=== PATIENT | male | born 1955 | race Caucasian/White ===

== ENCOUNTER 2017-01-20 12:13 | Inpatient (IN) | payer MEDICAID ==
[~2017-01-20] VITALS: Ht 182.9 cm; Wt 126.1 kg
[2017-01-20 12:46] VITALS: BP 183/82
--- NOTE | 2017-01-20 12:53 | NUR ---
Patient ambulated to bed 7 at this time.
--- NOTE | 2017-01-20 13:02 | NUR ---
PT PRESENTS TO ER W/C/O LEFT LOWER LEG PAIN AND EDEMA X3 WEEKS. LEFT PANT LEG NOTED TO BE SATURATED W/FOUL SMELLING LIQUID EMANATING FROM LEFT LOWER LEG.RT LEG IS SWOOLEN AND REDNESS NOTED BUT DENIES PAIN ON THAT SITE; PT STATES IT HAPPENED A YEAR AGO AND JUST DISAPPEARED W/O TAKING ANY MEDICATION;NUMBENESS ON LEFT LEG.PT DENIES ANY MEDICAL HX.STEADY GAIT;DENIES CPF/N/V/ COUGH AT THIS TIME;STATES MILD SOB;02 SAT OF 97%;AAOX4;NO ACUTE DISTRESS NOTED AT THIS TIME;NEEDS ATTENDED;SAFETY MEASURES DONE;ALL MONITORS IN PLACED;POSITIONED FOR COMFORT.
[2017-01-20] MEDS ORDERED: NACL 0.9% 500 ML IV SCH (13:11)
[2017-01-20] MEDS ORDERED: cefTRIAXone 1,000 MG in DEXT 5% MINI-BAG PLUS 50 ML IV ONE (13:15)
[2017-01-20] MEDS ORDERED: VANCOMYCIN 1,000 MG in DEXTROSE 5% 250 ML IV ONE (13:15)
--- NOTE | 2017-01-20 13:15 | NUR ---
DR LUCERO AT BEDSIDE.
[2017-01-20] MEDS ORDERED: cefTRIAXone 1,000 MG VIAL ONE (13:54)
--- NOTE | 2017-01-20 14:09 | NUR ---
ASKED PT IF HE CAN URINATE AT THIS TIME;PT STATES " I'M NOT ABLE YET";WILL CONTINUE TO MONITOR PT.
[2017-01-20] MEDS ORDERED: HYDROmorphone 1 MG/ML AMP IVP ONE (14:40)
[2017-01-20] MEDS ORDERED: ONDANSETRON 4 MG/2 ML VIAL IVP ONE (14:40)
[2017-01-20] MEDS ORDERED: VANCOMYCIN 1,000 MG VIAL ONE (14:46)
[2017-01-20] MEDS: NACL 0.9% 1,000 ML IV SCH (15:19)
[2017-01-20] MEDS ORDERED: ZOLPIDEM 5 MG TAB PO PRN (15:20)
[2017-01-20] MEDS ORDERED: HYDROcodone/APAP 5/325 MG 1 TAB TAB PO PRN (15:20)
[2017-01-20] MEDS ORDERED: ACETAMINOPHEN 325 MG TAB PO PRN (15:20)
[2017-01-20] MEDS ORDERED: ONDANSETRON 4 MG/2 ML VIAL IVP PRN (15:20)
[2017-01-20] MEDS ORDERED: LORazepam 1 MG TAB PO PRN ×2 (15:20→16:50)
--- NOTE | 2017-01-20 15:20 | NUR ---
PATIENT ADMITTED TO [facility] ROOM 115 FROM ER. PT ADMITTED FOR LEFT LEG CELLULITIS. PATIENT IS ALERT AND ORIENTED X4. AMBULATORY WITH ASSIST, WEAKNESS DUE TO PAIN. PATIENT MEDICATED IN ER FOR PAIN, DENIES DISCOMFORT AT THIS TIME. LUNG SOUNDS CLEAR BILATERALLY, NO S/S OF RESPIRATORY DISTRESS. CALL LIGHT WITHIN REACH. ORIENTED PT TO HOSPITAL ENVIRONMENT. BED IN LOWEST POSITION. MD NOTIFIED FOR WOUND CONSULTATION. WILL CONTINUE TO MONITOR.
--- NOTE | 2017-01-20 15:25 | NUR ---
Admited to ROOM MS. Will go to room 115 A. Belongings list completed. Report to LINDA HANNAH.
[2017-01-20] MEDS: INTERDRY CLOTH TP SCH (15:50)
[2017-01-20 16:00] VITALS: BP 148/75
--- NOTE | 2017-01-20 16:00 | NUR ---
PATIENT SEEN BY WOUND CARE NURSE FOR LEFT LEG CELLULITIS. WC NURSE SPOKE WITH PRIMARY MD REGARDING PLAN OF CARE, NEW ORDERS RECEIVED.
[2017-01-20] MEDS ORDERED: PNEUMOCOCCAL VACCINE 23 MCG/0.5 ML VIAL IMVAC SCH (16:05)
--- NOTE | 2017-01-20 16:10 | NUR ---
WOUND CARE EVALUATION NOTES: REASON FOR EVALUATION: LLE CELLULITIS. COMPLETE SKIN ASSESSMENT DONE ON THIS 61 Y/O MALE PATIENT FROM HOME TO [facility], WITH INITIAL DIAGNOSIS OF LLE CELLULITIS. NO PERTINENT MEDICAL HISTORY CLAIMED. HAS NOT SEEN A DOCTOR FOR 3O-40 YEARS CLAIMED. 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 LABS ARE WBC 9.8, H/H 14.4/43.5, GLUCOSE 125, ALBUMIN 3.2, PT/INR 10.1/1.1 AND PTT 28.5. CURRENT MEDS INCLUDE NICOTINE TRANSDERMAL, CLINDAMYCIN, ATIVAN AND NORCO. PATIENT IS AWAKE, ALERT, ORIENTED TO PERSON, PLACE, DATE AND TIME. ABLE TO FOLLOW SIMPLE COMMAND. SKIN WARM TO TOUCH WNL, TOENAILS ARE LONG, THICKENED AND WITH YELLOWISH DISCOLORATIONS, LLE WITH EDEMA, RLE DRY AND FLAKY AND +3 BILATERAL PEDAL PULSES. URINE AND BOWEL CONTINENT, ABLE TO AMBULATE TO THE RESTROOM CLAIMED. ABLE TO TURN SELF WITH MINIMAL ASSISTANCE. INITIAL PLAN OF CARE AND PRESSURE PREVENTIVE MEASURES DISCUSSED, ABLE TO VERBALIZE UNDERSTANDING. INTEGUMENTARY: LLE - VENOUS STASIS ULCER - 100% THIN YELLOW PW WITH DISCOLORATION RLE - VENOUS STASIS ULCER - 100% BROWN ESCHAR ABDOMINAL FOLDS - INTERTRIGINOUS DERMATITIS RECOMMENDATIONS: -CLEANSE BLE WITH WOUND CLEANSER, PAT DRY, APPLY ADAPTIC, COVER WITH ABD PAD AND WRAP WITH RUSSELL Q DAY AND PRN WITH SOILING/DISPLACEMENT -CLEANSE ABDOMINAL FOLDS WITH MILD SOAP AND WATER, PAT DRY, APPLY INTERDRY CLOTH Q7 DAYS AND PRN WITH SOILING/DISPLACEMENT. CHECK DRESSING PLACEMENT DAILY --TURN AND REPOSITION PATIENT Q2H TO LEFT AND RIGHT SIDE ONLY TO OFFLOAD SACRALCOCCYX -ASSESS AND MONITOR SKIN CONDITION DURING POSITION CHANGE, PLEASE PAY PARTICULAR ATTENTION TO SACRALCOCCYX, ELBOWS AND HEELS -OFFLOAD BILATERAL HEELS BY PLACING PILLOWS UNDER CALVES AT ALL TIMES, UNLESS OTHERWISE CONTRAINDICATED -KEEP SKIN CLEAN AND DRY AT ALL TIMES. -ARTERIAL AND VEOUS DOPPLER U/S OF BLE IF OK WITH PMD -PODIATRY CONSULT IF OK WITH PMD. RECOMMENDATIONS DISCUSSED WITH PRIMARY RN AND RESIDENT PHYSICIAN, DR. PERDOMO WILL FOLLOW UP PATIENT Q 7 DAYS AND PRN. PLEASE CONTACT [facility] FOR ANY CONCERNS, QUESTIONS AND CHANGES IN SKIN CONDITION.
[2017-01-20] MEDS ORDERED: LORazepam 2 MG/ML VIAL IVP PRN (16:50)
[2017-01-20] MEDS: HYDROmorphone 1 MG/ML AMP IVP PRN ×2 (16:54→20:16)
[2017-01-20] MEDS: LEVOFLOXACIN 500 MG/D5W PREMIX 100 ML IV SCH (16:59)
[2017-01-20] MEDS ORDERED: SKINTEGRITY HYDROGEL TP PRN (18:00)
--- NOTE | 2017-01-20 18:00 | NUR ---
PATIENT SEEN BY DR ALBERTS PODIATRY AT BEDSIDE. NEW ORDERS RECEIVE FOR WOUND CARE. PATIENT IN AGREEMENT WITH TREATMENT PLAN.
[2017-01-20] MEDS ORDERED: SKINTEGRITY HYDROGEL TP SCH (18:04)
[2017-01-20] MEDS: CLINDAMYCIN 300 MG in DEXTROSE 5% 50 ML IV SCH ×2 (18:28→23:49)
--- NOTE | 2017-01-20 19:19 | NUR ---
SBAR REPORT GIVEN TO RN ARJUN AT PATIENT BEDSIDE. LEG DRESSING PLACED BY DR. ALBERTS, DRY AND INTACT, NO SIGN AND SYMPTOMS OF ACUTE DISTRESS.
--- NOTE | 2017-01-20 19:33 | NUR ---
RECEIVED FROM AM RN IN BED AWAKE AND ALERT. NO SOB. CELLULITIS LOWER EXTREMITIES DX. MORBIDLY OBESE MALE PT. ABLE TO VERBALIZE NEEDS WELL. ORIENTED X 4. CLEAR SPEECH. PT. CARE PLANS FOR THE NIGHT DISCUSSED WITH HIM. RE-ORIENTED TO CALL LIGHT USE.
--- NOTE | 2017-01-20 20:22 | NUR ---
PT. REQUESTED FOR PAIN RELIEVER. SISTERS AT BEDSIDE. PT WANTS DILAUDID AND ATIVAN IVP RT HE FEELS JITTERY HE SAID. WILL MEDICATE REQUESTED. PT. NOTED TO HAVE RESTLESSNESS AND JERKING HIS LEGS.
[2017-01-20] MEDS: LORazepam 1 MG TAB PO SCH (20:24)
[2017-01-20 20:53] VITALS: BP 148/87
--- NOTE | 2017-01-20 20:56 | NUR ---
PT.S VISITORS LEFT FOR HOME. PT. SLEEPING AT THIS TIME. CALL LIGHT WITH IN REACH. IVF SITE NO INFILTRATION NOTED.
--- NOTE | 2017-01-20 21:46 | NUR ---
PT. SLEEPING. AROUSABLE WITH TOUCH. NO COMPLAINTS DONE. " I AM [facility]" ENCOURAGED TO CALL FOR ANY HELP HE MAY NEED OR IF PAIN. VERBALIZES WELL.
--- NOTE | 2017-01-20 23:49 | NUR ---
PT. SLEEPING. AROUSABLE WHEN NAME CALLED. IV ABT CLEOCIN INFUSED. NO FURTHER COMPLAINTS DONE.
[2017-01-20 23:52] VITALS: BP 139/74
--- NOTE | 2017-01-21 02:00 | NUR ---
PT. WOKE UP AND USED URINAL. SLEPT BACK. DENIES PAIN AT THIS TIME. CALL LIGHT WITH IN REACH.
[2017-01-21] MEDS: NACL 0.9% 1,000 ML IV SCH ×3 (03:49→21:14)
--- NOTE | 2017-01-21 04:49 | NUR ---
SLEEPING. WAKES UP WHEN CALLED BY NAME. CALL LIGHT WITH IN REACH. NO RESTLESSNESS NOTED AT THIS TIME.
[2017-01-21] MEDS: LORazepam 1 MG TAB PO SCH ×3 (05:00→21:08)
[2017-01-21] MEDS: CLINDAMYCIN 300 MG in DEXTROSE 5% 50 ML IV SCH ×3 (05:07→17:37)
--- NOTE | 2017-01-21 07:20 | NUR ---
RECEIVED REPORT FROM NIGHT NURSE. PT IS AAOX4 AND SHOWS NO S/S OF DISTRESS. PT IS ON ROOM AIR. NOTED BLE DRESSING CLEAN DRY AND INTACT. REDNESS NOTED ON SUPRAPUBIC FOLD. PT IV NOTED ON LEFT HAND 22 GAUGE PATENT AND INTACT. PT DENIES PAIN. PT BED IS LOWERED WITH CALL LIGHT WITHIN REACH. WILL CONTINUE TO MONITOR.
--- NOTE | 2017-01-21 07:27 | NUR ---
SLEEPING. ENDORSED TO THE NEXT RN FOR CONTINUITY OF CARE. WOKE UP EASILY WHEN TOUCHED. ABLE TO VERBALIZE NEEDS WELL. A/O X 4. INTRODUCED THE AM RN TO HIM. NO COMPLAINTS DONE.
[2017-01-21 07:54] VITALS: BP 113/52
--- NOTE | 2017-01-21 08:00 | NUR ---
PT HAS TEMPERATURE OF 100.1 F[address] COOLING MEASURES IN PLACE. ADMINISTERED PRN MEDICATION. WILL REASSESS.
[2017-01-21] MEDS: MULTIVITAMIN 1 TAB PO SCH (08:12)
[2017-01-21] MEDS: FOLIC ACID 1 MG TAB PO SCH (08:12)
[2017-01-21] MEDS: DOCUSATE SODIUM 100 MG GELCAP PO SCH (08:12)
[2017-01-21] MEDS: THIAMINE 100 MG TAB PO SCH (08:13)
[2017-01-21] MEDS: NICOTINE TRANSD SYS 21 MG/24 HR PATCH TD SCH (08:13)
[2017-01-21] MEDS: INTERDRY CLOTH TP SCH (08:21)
[2017-01-21] MEDS: SKINTEGRITY HYDROGEL TP SCH (09:00)
--- NOTE | 2017-01-21 09:10 | NUR ---
PT IS BEING REPOSITIONED BY NURSE GEAR ROOM KEEPER. REASSESSED TEMPERATURE 99.2 F. PT HAS NO S/S OF DISTRESS.
--- NOTE | 2017-01-21 09:28 | NUR ---
PATIENT HAS BEEN SCREENED AND CATEGORIZED LOW RISK. PATIENT WILL BE SEEN WITHIN 7 DAYS OF ADMISSION. 01/27/[address]
--- NOTE | 2017-01-21 11:30 | NUR ---
PT IS IN ROOM SLEEPING. SHOWS NO S/S OF DISTRESS. WILL CONTINUE TO MONITOR.
--- NOTE | 2017-01-21 13:45 | NUR ---
PT IS TALKING ON THE PHONE WITH HIS FRIEND.
[2017-01-21 16:00] VITALS: BP 118/59
--- NOTE | 2017-01-21 16:00 | NUR ---
PT HAS FAMILY AND FRIENDS VISITING. PT SHOWS S/S OF DISTRESS. WILL CONTINUE TO MONITOR.
[2017-01-21] MEDS: LEVOFLOXACIN 500 MG/D5W PREMIX 100 ML IV SCH (16:08)
--- NOTE | 2017-01-21 19:10 | NUR ---
GAVE REPORT TO NIGHT NURSE. PT ENDORSED IN STABLE CONDITION.
--- NOTE | 2017-01-21 19:11 | NUR ---
Patient's Plan of Care was discussed and reviewed with ENVIRONMENTAL HEALTH PHYSICIAN: LORENZO METCALF LVN
--- NOTE | 2017-01-21 19:30 | NUR ---
PATIENT IS CURRENTLY RESTING IN BED HE IS AWAKE ALERT ORIENTED RESTING IN BED CURRENTLY HAVING AN ECHO DONE BAG MAKER AT BEDSIDE.PATIENT DENIES PAIN. PATIENT IS CALM AND COMPLIANT. BOTH LOWER LEGS ARE BOTH WRAPPED AND HAVE DRESSINGS.CALL LIGHT WITHIN REACH WILL CONTINUE TO MONITOR.
[2017-01-21 20:25] VITALS: BP 128/55
--- NOTE | 2017-01-21 20:48 | NUR ---
PATIENT NEEDS MET PATIENT IS AWAKE AND ALERT.CALL LIGHT WITHIN REACH.WILL CONTINUE TO MONITOR.
[2017-01-21] MEDS: SIMVASTATIN 20 MG TAB PO SCH (21:08)
--- NOTE | 2017-01-21 21:08 | NUR ---
EDUCATION GIVEN ON ROUTINE NIGHT TIME MEDICATIONS PT VERBALIZES UNDERSTANDING AND TOOK HIS MEDICATION.
--- NOTE | 2017-01-21 23:18 | NUR ---
PATIENT IS CURRENTLY RESTING IN BED SLEEPING WILL CONTINUE TO MONITOR.
[2017-01-22] MEDS: CLINDAMYCIN 300 MG in DEXTROSE 5% 50 ML IV SCH ×5 (00:11→23:02)
[2017-01-22 00:39] VITALS: BP 139/66
--- NOTE | 2017-01-22 03:16 | NUR ---
PATIENT IS CURRENTLY RESTING IN BED SLEEPING NO DISTRESS.IVF INFUSING WELL WILL CONTINUE TO MONITOR.
[2017-01-22] MEDS: LORazepam 1 MG TAB PO SCH ×3 (05:00→20:14)
--- NOTE | 2017-01-22 06:35 | NUR ---
PATIENT IS CURRENTLY RESTING IN BED SLEEPING NEEDS CONTINUE TO BE MET.WILL CONTINUE TO MONITOR.CALL LIGHT WITHIN REACH.
--- NOTE | 2017-01-22 07:40 | NUR ---
RECEIVED PT SLEEPING COMFORTABLY IN BED AND WAS IN NO DISTRESS. PT ROUSABLE AND VOICED NO C/O PAIN AT THIS TIME. SHIFT ASSESSMENT DONE AND CHARTED. PLAN OF CARE, MEDS, TREATMENTS DISCUSSED WITH PT AND PT VERBALIZED UNDERSTANDING. WILL CONTINUE TO MONITOR PT.
[2017-01-22 08:00] VITALS: BP 132/61
[2017-01-22] MEDS ORDERED: ECOTRIN 81 MG TABEC PO SCH (08:25)
[2017-01-22] MEDS: NICOTINE TRANSD SYS 21 MG/24 HR PATCH TD SCH (08:47)
[2017-01-22] MEDS: FOLIC ACID 1 MG TAB PO SCH (08:48)
[2017-01-22] MEDS: THIAMINE 100 MG TAB PO SCH (08:48)
[2017-01-22] MEDS: MULTIVITAMIN 1 TAB PO SCH (08:48)
[2017-01-22] MEDS: ECOTRIN 81 MG TABEC PO SCH (08:48)
[2017-01-22] MEDS: DOCUSATE SODIUM 100 MG GELCAP PO SCH (08:49)
[2017-01-22] MEDS: INTERDRY CLOTH TP SCH (09:00)
[2017-01-22] MEDS: SKINTEGRITY HYDROGEL TP SCH (09:00)
[2017-01-22] MEDS ORDERED: ASPIRIN 325 MG TABEC PO SCH (09:00)
--- NOTE | 2017-01-22 09:00 | NUR ---
PT TOOK DIET, FLUIDS AND SCHEDULED MEDS WELL.
--- NOTE | 2017-01-22 11:00 | NUR ---
PT SLEEPING ON AND OFF MOST OF AM. PT VOICED NO C/O PAIN AT THIS TIME.
[2017-01-22] MEDS: NACL 0.9% 1,000 ML IV SCH (11:34)
--- NOTE | 2017-01-22 13:00 | NUR ---
PT TOLERATED DIET AND FLUIDS WELL. PT VOIDING FREELY.
--- NOTE | 2017-01-22 13:55 | NUR ---
DR. LAURENT WAS IN TO SEE PT AND MD LEFT NEW ORDERS.
[2017-01-22] MEDS ORDERED: LIDOCAINE JELLY 2% 30 ML TUBE TP ONE (15:15)
[2017-01-22] MEDS: HYDROmorphone 1 MG/ML AMP IVP PRN ×2 (15:21→23:54)
--- NOTE | 2017-01-22 15:21 | NUR ---
PT MEDICATED WITH DILAUDID PER PRN ORDER FOR C/O PAIN IN LLE 07/11. DR. NGUYEN WAS IN AND DOING EXCISIONAL DEBRIDEMENT OF ULCERATION LEFT LEG AT THIS TIME. WILL REASSESS PT.
--- NOTE | 2017-01-22 16:00 | NUR ---
PT LYING IN BED WITH DRESSINGS TO LEFT LEG CLEAN, DRY AND INTACT. PT STATED THAT HIS PAIN WAS LESS AFTER PROCEDURE. 01/09.
[2017-01-22 16:05] VITALS: BP 143/72
[2017-01-22] MEDS: LEVOFLOXACIN 500 MG/D5W PREMIX 100 ML IV SCH (16:36)
--- NOTE | 2017-01-22 18:23 | NUR ---
PT TOOK DIET AND FLUIDS WELL. NO CHANGES NOTED IN PT'S CONDITION.
--- NOTE | 2017-01-22 19:15 | NUR ---
REPORT GIVEN TO IRWIN BAIN. NO CHANGES NOTED IN PT'S CONDITION.
--- NOTE | 2017-01-22 19:16 | NUR ---
PATIENT IS CURRENTLY AWAKE ALERT ORIENTED RESTING IN BED.PATIENT IVF INFUSING WELL IV SITE PATENT.PATIENT DENIES PAIN AND DISCOMFORT.CALL LIGHT WITHIN REACH.WILL CONTINUE TO MONITOR.
[2017-01-22 20:00] VITALS: BP 124/77
--- NOTE | 2017-01-22 20:00 | NUR ---
Patient's Plan of Care was discussed and reviewed with BOOKKEEPING TEACHER: LORENZO METCALF
[2017-01-22] MEDS: SIMVASTATIN 20 MG TAB PO SCH (20:14)
--- NOTE | 2017-01-22 20:14 | NUR ---
EDUCATION GIVEN ON ROUTINE MEDICATIONS AND PATIENT VERBALIZES UNDERSTANDING AND TOOK HIS MEDICATION.WILL CONTINUE TO MONITOR.
--- NOTE | 2017-01-22 21:54 | NUR ---
PATIENT IS CURRENTLY SLEEPING IN BED IN NO DISTRESS WILL CONTINUE TO MONITOR.CALL LIGHT WITHIN REACH.
--- NOTE | 2017-01-22 23:56 | NUR ---
I GOT A RETURN CALL FROM MD LAURENT EARLIER AND I INFORMED HER THAT PATIENT HAS DVT SCORE OF 4 AND UNABLE TO USE THE SCD'S SO I INFORMED HE THAT HE NEEDS DVT PROPHALAXIS. SAID SHE WILL PUT IN THE ORDER.
[2017-01-23 00:04] VITALS: BP 119/61
--- NOTE | 2017-01-23 00:10 | NUR ---
PATIENT IS CURRENTLY RESTING IN BED.IVF INFUSING WELL IV SITE PATENT,CALL LIGHT WITHIN REACH WILL CONTINUE TO MONITOR.
[2017-01-23] MEDS: NACL 0.9% 1,000 ML IV SCH (02:48)
--- NOTE | 2017-01-23 02:50 | NUR ---
PATIENT IS CURRENTLY RESTING IN BED SLEEPING URINAL WAS EMPTIED NEEDS MET,IVF INFUSING WELL IV SITE PATENT.CALL LIGHT WITHIN REACH.
--- NOTE | 2017-01-23 04:20 | NUR ---
PATIENT IS CURRENTLY SLEEPING,IVF INFUSING WELL,IV SITE PATENT NEEDS MET WILL CONTINUE TO MONITOR.
[2017-01-23] MEDS: LORazepam 1 MG TAB PO SCH ×2 (05:00→13:35)
[2017-01-23] MEDS: CLINDAMYCIN 300 MG in DEXTROSE 5% 50 ML IV SCH ×2 (05:05→11:28)
--- NOTE | 2017-01-23 07:23 | NUR ---
PATIENT IS CURRENTLY STABLE REPORT ENDORSED TO LINDA MARTIN HE WILL RESUME CARE OF THE PATIENT.
--- NOTE | 2017-01-23 07:50 | NUR ---
RECEIVED PT AAOX4, PLEASANT AND COOPERATIVE AND VOICED BEARABLE PAIN IN LLE 02/08. SHIFT ASSESSMENT DONE AND CHARTED. PLAN OF CARE MED,TREATMENTS AND SAFETY DISCUSSED WITH PT. WILL CONTINUE TO MONITOR PT.
[2017-01-23 08:00] VITALS: BP 140/71
--- NOTE | 2017-01-23 08:00 | NUR ---
DUE TO A CHANGE IN PATIENT [facility] SCORE, PATIENT HAS BEEN RESCREENED AND RE CATEGORIZED MODERATE NUTRITION RISK. PATIENT WILL BE SEEN WITHIN 3-5 DAYS OF ADMISSION. 01/23/17-01/25/[address]
[2017-01-23] MEDS: THIAMINE 100 MG TAB PO SCH (08:44)
[2017-01-23] MEDS: MULTIVITAMIN 1 TAB PO SCH (08:45)
[2017-01-23] MEDS: DOCUSATE SODIUM 100 MG GELCAP PO SCH (08:45)
[2017-01-23] MEDS: ECOTRIN 81 MG TABEC PO SCH (08:45)
[2017-01-23] MEDS: FOLIC ACID 1 MG TAB PO SCH (08:45)
[2017-01-23] MEDS: HYDROmorphone 1 MG/ML AMP IVP PRN (08:46)
--- NOTE | 2017-01-23 08:50 | NUR ---
PT TOOK DIET AND FLUIDS WELL. PT WAS SEEN BY DR. PERDOMO AND LEFT NEW ORDERS.
[2017-01-23] MEDS: NICOTINE TRANSD SYS 21 MG/24 HR PATCH TD SCH (08:57)
[2017-01-23] MEDS: INTERDRY CLOTH TP SCH (08:57)
--- NOTE | 2017-01-23 10:40 | NUR ---
DR. PERDOMO WAS IN TO SEE PT AND MD LEFT PRESCRIPTIONS AND DISCHARGE ORDER. PT AWARE OF SAME.
[2017-01-23] MEDS ORDERED: CLEOCIN HCL300 MG PO (10:45)
[2017-01-23] MEDS ORDERED: FLORASTOR250 MG PO (10:45)
[2017-01-23] MEDS ORDERED: SIMVASTATIN20 M1 PO (10:45)
[2017-01-23] MEDS ORDERED: ATIVAN1 M1 PO (10:45)
[2017-01-23] MEDS ORDERED: LEVAQUIN750 MG PO (10:45)
[2017-01-23] MEDS ORDERED: ASPIRIN ADULT L81 M2 PO (10:45)
[2017-01-23] MEDS ORDERED: NORCO 10/325 MG1 TAB PO (11:18)
[2017-01-23] MEDS ORDERED: COLACE100 M1 PO (11:18)
--- NOTE | 2017-01-23 11:30 | NUR ---
WOUND CARE NOTES: WOUND CARE D/C INSTRUCTIONS GIVEN, PATIENT IS ABLE TO VERBALIZE UNDERSTANDING. PICTURES OBTAINED AND PLACED IN THE CHART.
[2017-01-23] MEDS: SKINTEGRITY HYDROGEL TP SCH (11:42)
[2017-01-23] MEDS ORDERED: HYDROcodone/APAP 10/325 MG 1 TAB TAB PO SCH (12:00)
--- NOTE | 2017-01-23 12:30 | NUR ---
PT AAOX4 AND TOOK DIET AND FLUIDS WELL. DRESSINGS TO BLE CLEAN, DRY AND INTACT.
--- NOTE | 2017-01-23 14:30 | NUR ---
PT'S VISITING AT BEDSIDE. PT LYING COMFORTABLY IN BED AND WAS IN NO DISTRESS.
--- NOTE | 2017-01-23 15:45 | NUR ---
PRESCRIPTIONS AND DISCHARGE INSTRUCTIONS GIVEN TO PT AND PT VERBALIZED UNDERSTANDING. SALINE LOCK REMOVED WITH OLD CATH TIP INTACT AND PRESSURE DRESSINGS APPLIED TO SITE. PT WAITING FOR HIS RIDE TO TAKE HIM HOME.
--- NOTE | 2017-01-23 16:30 | NUR ---
PT DISCHARGED TO HOME PER W/C ACCOMPANIED BY A FRIEND VIA PRIVATE VEHICLE IN A STABLE CONDITION. ALL PATIENT'S BELONGINGS SENT WITH PT.
== END 2017-01-23 16:25 | disposition home or self-care (01) | DRG 383 ==
LOC: MED 12:13 → MTU 14:44
PROVIDERS: ADMIT Family Medicine; ATTEND Family Medicine
PROC: 0JBP0ZZ Excision of Left Lower Leg Subcutaneous Tissue and Fascia, Open Approach (ICD-10-PCS; principal; 2017-01-22)
DX: L03.116 Cellulitis of left lower limb (principal); N17.0 Acute kidney failure with tubular necrosis; D68.59 Other primary thrombophilia; L10.0 Pemphigus vulgaris; L97.929 Non-pressure chronic ulcer of unspecified part of left lower leg with unspecified severity; E44.1 Mild protein-calorie malnutrition; I87.2 Venous insufficiency (chronic) (peripheral); L03.115 Cellulitis of right lower limb; E66.9 Obesity, unspecified; F17.210 Nicotine dependence, cigarettes, uncomplicated; F10.20 Alcohol dependence, uncomplicated; F15.10 Other stimulant abuse, uncomplicated; R73.03 Prediabetes; Z68.34 Body mass index [BMI] 34.0-34.9, adult; Z56.0 Unemployment, unspecified

== ENCOUNTER 2023-06-19 01:00 | Emergency (ER) | payer MEDICARE ==
[~2023-06-19] VITALS: Ht 182.9 cm; Wt 117.9 kg
[~2023-06-19 01:00] MED LIST: AMOX-999 PO; ASPI-1856 PO; CLIN300C2 PO; DOCU-299 PO; FLOR250 PO; HYDR-5191 PO; LEVO750T2 PO; LORA-476 PO; SIMV-30 PO; VANC125C12 PO
[2023-06-19 01:05] VITALS: BP 175/92; PULSE 70; RESP 16; TEMP 97.4; O2SAT 100
[2023-06-19] MEDS ORDERED: MORPHINE SULFATE 4 MG/ML SYR IVP ONE ×2 (01:30→03:15)
[2023-06-19] MEDS ORDERED: FAMOTIDINE 20 MG/2 ML VIAL IVP ONE (01:30)
[2023-06-19] MEDS ORDERED: ONDANSETRON 4 MG/2 ML VIAL IVP ONE (01:30)
[2023-06-19 01:49] LABS: BASOPHILS # (AUTO) 0.1 K/uL (0.00-0.22); BASOPHILS % (AUTO) 0.8 % (0.0-2.0); EOSINOPHILS # (AUTO) 0.1 K/uL (0-0.4); EOSINOPHILS % (AUTO) 0.3 % (0.0-4.0); HEMATOCRIT 41.2 % (36-52); HEMOGLOBIN 14.1 g/dL (12.0-18.0); LYMPHOCYTES # (AUTO) 1.4 K/uL (2.0-11.5); LYMPHOCYTES % (AUTO) 9.2 % (20.5-51.1); MEAN CORPUSCULAR HEMOGLOBIN 30 pg (27-31); MEAN CORPUSCULAR HGB CONC 34 g/dL (33-37); MEAN CORPUSCULAR VOLUME 88.5 fL (80-94); MONOCYTES # (AUTO) 0.8 K/uL (0.8-1.0); MONOCYTES % (AUTO) 5.4 % (1.7-9.3); NEUTROPHILS # (AUTO) 12.4 K/uL (1.8-7.7); NEUTROPHILS % (AUTO) 84.3 % (42.2-75.2); PLATELET COUNT (AUTO) 157 K/uL (140-450); RED BLOOD CELL COUNT(AUTO) 4.66 MIL/uL (4.20-6.10); RED CELL DISTRIBUTION WIDTH 15.1 % (11.6-13.7); WHITE BLOOD COUNT (AUTO) 14.8 K/uL (4.8-10.8)
[2023-06-19 02:03] LABS: INR 0.98 (0.8-1.2); PROTHROMBIN TIME 10.3 secs (10.8-13.4)
[2023-06-19 02:06] LABS: ALBUMIN 3.1 g/dL (3.4-5.0); ANION GAP 9.3 (8-16); CALCIUM 8.6 mg/dL (8.5-10.1); CREATININE 1.1 mg/dL (0.6-1.3); POTASSIUM 4.3 mmol/L (3.5-5.1); TOTAL BILIRUBIN 0.5 mg/dL (0.0-1.0); TOTAL PROTEIN, SERUM 7.6 g/dL (6.4-8.2)
[2023-06-19 02:11] LABS: LIPASE 57 U/L (73-393)
[2023-06-19] MEDS ORDERED: METOCLOPRAMIDE 10 MG/2 ML INJ VIAL IVP ONE (03:05)
[2023-06-19 05:03] VITALS: O2SAT 98
[2023-06-19 05:38] LABS: APPEARANCE,URINE CLEAR (CLEAR); BILIRUBIN,URINE NEGATIVE (NEGATIVE); BLOOD, URINE NEGATIVE (NEGATIVE); COLOR,URINE YELLOW (YELLOW); LEUKOCYTE ESTERASE ,URINE NEGATIVE (NEGATIVE); NITRITE, URINE NEGATIVE (NEGATIVE); PROTEIN,URINE TRACE (NEGATIVE); UGLUCOSE NEGATIVE (NEGATIVE)
[2023-06-19] MEDS ORDERED: ONDA-188 PO (07:42)
[2023-06-19 08:21] VITALS: BP 142/57; PULSE 55; RESP 16; TEMP 98.5; O2SAT 99
== END 2023-06-19 08:21 | disposition home or self-care (01) ==
LOC: MED 01:00
DX: R10.13 Epigastric pain (principal); R73.9 Hyperglycemia, unspecified; I50.9 Heart failure, unspecified; J44.9 Chronic obstructive pulmonary disease, unspecified; F17.200 Nicotine dependence, unspecified, uncomplicated; Z79.899 Other long term (current) drug therapy
CPT/HCPCS: 36415; 71045; 74176; 80053; 81003; 83690; 83880; 84484; 85025; 85610; 85730; 93005; 96374; 96375; 96376; 99285; J2270; J2405; J2765; J3490; Q0092